=== PATIENT | male | born 2000 | race Two or more races ===

== ENCOUNTER 2024-06-29 19:49 | Emergency (ER) | payer SELFPAY ==
[~2024-06-29] VITALS: Ht 193 cm; Wt 99.8 kg
[2024-06-29] MEDS: LORAZEPAM 2 MG/1 ML VIAL IV ONE (20:22)
[2024-06-29] MEDS: IV NORMAL SALINE 500 ML BAG IV ONE (20:23)
[2024-06-29 20:28] LABS: BASOPHILS % (AUTO) 0.2 % (0.0-2.0); HEMATOCRIT 39.6 % (36.7-47.1); HEMOGLOBIN 13.4 g/dL (12.5-16.3); LYMPHOCYTES # (AUTO) 2.2 K/uL (0.8-4.8); LYMPHOCYTES % (AUTO) 35.2 % (20.5-51.5); MEAN CORPUSCULAR HEMOGLOBIN 29.3 uug (23.8-33.4); MEAN CORPUSCULAR HGB CONC 34 g/dL (32.5-36.3); MEAN CORPUSCULAR VOLUME 86.8 fL (73.0-96.2); MONOCYTES # (AUTO) 0.6 K/uL (0.1-1.30); MONOCYTES % (AUTO) 8.9 % (0.0-11.0); NEUTROPHILS # (AUTO) 3.5 K/uL (1.8-8.9); NEUTROPHILS % (AUTO) 55.7 % (38.5-71.5); PLATELET COUNT (AUTO) 301 K/uL (152-348); RED BLOOD CELL COUNT(AUTO) 4.56 MIL/uL (4.06-5.63); RED CELL DISTRIBUTION WIDTH 13.2 % (12.1-16.2); WHITE BLOOD COUNT (AUTO) 6.3 K/uL (3.6-10.2)
[2024-06-29 20:32] LABS: DIFFERENTIAL COMMENT 1
[2024-06-29 20:38] LABS: CALCIUM 8.8 mg/dL (8.5-10.1); CARBON DIOXIDE 26 mmol/L (21-32); CHLORIDE 108 mmol/L (98-107); GLUCOSE 144 mg/dL (74-106); POTASSIUM 3.6 mmol/L (3.5-5.1); SODIUM SERUM 145 mmol/L (136-145); UREA NITROGEN, BLOOD 14 mg/dL (7-18)
[2024-06-29 20:43] LABS: MAGNESIUM 2.3 mg/dL (1.8-2.4)
[2024-06-29 20:44] LABS: ALANINE AMINOTRANSFERASE 24 U/L (16-63); ALBUMIN 3.9 g/dL (3.4-5.0); ALKALINE PHOSPHATASE 113 U/L (50-136); ASPARTATE AMINOTRANSFERASE 9 U/L (15-37); BILIRUBIN,DIRECT 0.2 mg/dL (0.0-0.2); BILIRUBIN,TOTAL 0.8 mg/dL (0.2-1.0); TOTAL PROTEIN, SERUM 7.2 g/dL (6.4-8.2)
[2024-06-29 20:45] LABS: ETHANOL < 3 MG/DL (0-10)
[2024-06-29 20:56] LABS: *BILIRUBIN,URIN NEGATIVE (NEGATIVE); *BLOOD, URINE NEGATIVE (NEGATIVE); *CLARITY,URINE CLEAR (CLEAR); *COLOR,URINE YELLOW (YELLOW); *KETONES,URINE NEGATIVE (NEGATIVE); *PROTEIN,URINE NEGATIVE (NEGATIVE); *UROBILINOGEN,URINE 0.2 E.U./dl (NORMAL); LEUKOCYTE ESTERASE ,URINE NEGATIVE (NEGATIVE); NITRITE, URINE NEGATIVE (NEGATIVE); PH,URINE 6.5 (5.0-8.0); UGLUCOSE NEGATIVE (NEGATIVE)
[2024-06-29 21:05] LABS: *AMPHETAMINE, URINE NEGATIVE (NEGATIVE); *BARBITURATE, URINE NEGATIVE (NEGATIVE); *BENZODIAZEPINE, URINE NEGATIVE (NEGATIVE); *CANNABINOID, URINE NEGATIVE (NEGATIVE); *COCCAINE, URINE NEGATIVE (NEGATIVE); *OPIATE, URINE NEGATIVE (NEGATIVE); *PHENCYCLIDINE SCREEN,URINE NEGATIVE (NEGATIVE); FENTANYL, URINE NEGATIVE (NEGATIVE)
[2024-06-29] MEDS: levETIRAcetam IV 500 MG in IV DEXTROSE 5% 100 ML IV ONE (22:00)
[2024-06-29] MEDS ORDERED: LAMO200T2 PO (22:05)
[2024-06-29] MEDS ORDERED: LEVE750T4 PO (22:05)
[2024-06-29] MEDS ORDERED: levETIRAcetam 500 MG/5 ML VIAL IV ONE (22:10)
[2024-06-29] MEDS: levETIRAcetam 250 MG TABLET PO STA (22:46)
[2024-06-29] MEDS: LAMOTRIGINE 200 MG TABLET PO STA (22:46)
[2024-06-29] MEDS ORDERED: levETIRAcetam 250 MG TABLET ONE (22:48)
[2024-06-30 01:48] VITALS: BP 118/76; TEMP 98.1; O2SAT 99
== END 2024-06-30 01:49 | disposition home or self-care (01) ==
LOC: ER 19:51
DX: F10.939 Alcohol use, unspecified with withdrawal, unspecified (principal); R56.9 Unspecified convulsions; F32.A Depression, unspecified; Z79.899 Other long term (current) drug therapy; Y90.0 Blood alcohol level of less than 20 mg/100 ml
CPT/HCPCS: 36415; 83605; 83735; 85025; 93005; A4606; A4663; G0480; J1953; J2060; J7040

== ENCOUNTER 2024-07-01 17:58 | Emergency (ER) | payer BC, MEDICAID ==
[~2024-07-01] VITALS: Ht 193 cm; Wt 108.9 kg
[~2024-07-01 17:58] MED LIST: LAMO200T2 PO; LEVE750T4 PO
[2024-07-01 19:09] LABS: BASOPHILS % (AUTO) 0.5 % (0.0-2.0); EOSINOPHILS % (AUTO) 0.2 % (0.0-7.0); HEMATOCRIT 39.5 % (36.7-47.1); HEMOGLOBIN 13.6 g/dL (12.5-16.3); LYMPHOCYTES # (AUTO) 2.3 K/uL (0.8-4.8); LYMPHOCYTES % (AUTO) 37.8 % (20.5-51.5); MEAN CORPUSCULAR HEMOGLOBIN 29.7 uug (23.8-33.4); MEAN CORPUSCULAR HGB CONC 34 g/dL (32.5-36.3); MEAN CORPUSCULAR VOLUME 86.4 fL (73.0-96.2); MONOCYTES # (AUTO) 0.5 K/uL (0.1-1.30); MONOCYTES % (AUTO) 8.1 % (0.0-11.0); NEUTROPHILS # (AUTO) 3.3 K/uL (1.8-8.9); NEUTROPHILS % (AUTO) 53.4 % (38.5-71.5); PLATELET COUNT (AUTO) 316 K/uL (152-348); RED BLOOD CELL COUNT(AUTO) 4.57 MIL/uL (4.06-5.63); WHITE BLOOD COUNT (AUTO) 6.1 K/uL (3.6-10.2)
[2024-07-01 19:12] LABS: DIFFERENTIAL COMMENT 1
[2024-07-01 19:18] LABS: CALCIUM 8.6 mg/dL (8.5-10.1); CARBON DIOXIDE 29 mmol/L (21-32); CHLORIDE 106 mmol/L (98-107); ETHANOL < 3 MG/DL (0-10); GLUCOSE 130 mg/dL (74-106); POTASSIUM 3.7 mmol/L (3.5-5.1); SODIUM SERUM 142 mmol/L (136-145); UREA NITROGEN, BLOOD 17 mg/dL (7-18)
[2024-07-01] MEDS ORDERED: levETIRAcetam 500 MG/5 ML VIAL IV ONE (19:25)
[2024-07-01 19:31] LABS: ALANINE AMINOTRANSFERASE 19 U/L (16-63); ALBUMIN 3.7 g/dL (3.4-5.0); ALKALINE PHOSPHATASE 115 U/L (50-136); ASPARTATE AMINOTRANSFERASE 7 U/L (15-37); BILIRUBIN,TOTAL 0.7 mg/dL (0.2-1.0); NT-PRO BNP 18 pg/mL (0-125)
[2024-07-01] MEDS: IV NS 1000 ML 1,000 ML IV ONE (19:33)
[2024-07-01] MEDS: levETIRAcetam IV 1,000 MG in IV DEXTROSE 5% 100 ML IV STA (19:33)
[2024-07-01 21:42] VITALS: BP 110/61; TEMP 98.6; O2SAT 99
== END 2024-07-01 21:43 ==
LOC: ER 18:00
DX: R56.9 Unspecified convulsions (principal); F32.A Depression, unspecified; Z79.899 Other long term (current) drug therapy
CPT/HCPCS: 80053; 83880; 85025; 84484; 36415; 70450; 99285; 96365; 80320; J1953 ×2; J7040; A4606; A4663; G0480